=== PATIENT | female | born 1985 | race Caucasian/White ===

== ENCOUNTER 2017-06-17 23:03 | Emergency (ER) | payer MEDICAID ==
[2017-06-18 02:20] LABS: URINE PH (Dip) POC 5.5 (5.0-8.5)
[2017-06-18 02:20] LABS: URINE BLOOD (Dip) POC 2+ (NEGATIVE); URINE GLUCOSE (Dip) POC Negative (NEGATIVE); URINE KETONES (Dip) POC Negative (NEGATIVE); URINE LEUKOCYTE EST (Dip) POC Negative (NEGATIVE); URINE NITRITE (Dip) POC Negative (NEGATIVE); URINE TOTAL PROTEIN POC Trace (NEGATIVE)
[2017-06-18] MEDS: SOD CHLORIDE 0.9% 1,000 ML IV (02:20)
[2017-06-18] MEDS: ONDANSETRON 4 MG INJ IV (02:20)
[2017-06-18] MEDS: KETOROLAC 30 MG INJ IV (02:42)
[2017-06-18 02:48] LABS: ADD MAN DIFF? NO
[2017-06-18 02:51] LABS: WHITE BLOOD COUNT 7.6 10^3/ul (4.8-10.8)
[2017-06-18 02:51] LABS: BASOPHILS % 0.3 % (0.0-2.0); EOSINOPHILS # 0.1 10^3/ul (0.0-0.5); EOSINOPHILS % 1.7 % (0.0-7.0); HEMATOCRIT 37.8 % (37.0-47.0); HEMOGLOBIN 13.1 g/dl (12.0-16.0); LYMPHOCYTES # 2.5 10^3/ul (0.8-2.9); LYMPHOCYTES % 32.7 % (15.0-51.0); MEAN CORPUSCULAR HEMOGLOBIN 29.8 pg (29.0-33.0); MEAN CORPUSCULAR HGB CONC 34.7 g/dl (32.0-37.0); MEAN CORPUSCULAR VOLUME 86.1 fl (82.0-101.0); MEAN PLATELET VOLUME 9.6 fl (7.4-10.4); MONOCYTE # 0.5 10^3/ul (0.3-0.9); MONOCYTES % 6.5 % (0.0-11.0); NEUTROPHIL # 4.5 10^3/ul (1.6-7.5); NEUTROPHILS % 58.5 % (39.0-77.0); PLATELET COUNT 334 10^3/UL (140-415); RED BLOOD COUNT 4.39 10^6/ul (4.20-5.40); RED CELL DISTRIBUTION WIDTH 12.9 % (11.5-14.5)
[2017-06-18 03:07] LABS: ANION GAP 15 (8-16); BLOOD UREA NITROGEN 15 mg/dl (7-20); CALCIUM 8.8 mg/dl (8.4-10.2); CARBON DIOXIDE 25 mmol/L (21-31); CHLORIDE 107 mmol/L (97-110); CREATININE 0.71 mg/dl (0.44-1.00); GLUCOSE 110 mg/dl (70-220); POTASSIUM 4.2 mmol/L (3.5-5.1); SODIUM 143 mmol/L (135-144)
[2017-06-18 03:21] LABS: TROPONIN-I < 0.012 ng/ml (0.00-0.12)
== END 2017-06-18 04:00 | disposition home or self-care (01) ==
LOC: FTE 23:03
DX: R51 Headache (principal); M79.622 Pain in left upper arm; R07.9 Chest pain, unspecified
CPT/HCPCS: 36415; 70450; 71045; 80048; 81003; 84484; 85025; 93005; 96374; 96375; 99285-25

== ENCOUNTER 2017-10-12 19:23 | Emergency (ER) | payer MEDICAID | END 2017-10-12 19:41 | disposition home or self-care (01) | LOC: E/R 19:23 | DX: K02.9 Dental caries, unspecified (principal); K21.9 Gastro-esophageal reflux disease without esophagitis | CPT/HCPCS: 93005; 99284-25 ==

== ENCOUNTER 2018-08-02 18:54 | Emergency (ER) | payer MEDICAID ==
[2018-08-02] MEDS: HYDROCODONE/APAP (5/325) TAB PO (23:34)
[2018-08-02] MEDS: KETOROLAC 30 MG INJ IM (23:35)
== END 2018-08-03 01:26 | disposition home or self-care (01) ==
LOC: FTE 08-03 01:26
DX: S19.9XXA Unspecified injury of neck, initial encounter (principal); S39.92XA Unspecified injury of lower back, initial encounter; W23.0XXA Caught, crushed, jammed, or pinched between moving objects, initial encounter; Y92.89 Other specified places as the place of occurrence of the external cause
CPT/HCPCS: 72125; 72128; 81025; 96372; 99285-25